=== PATIENT | male | born 1970 | race Caucasian/White ===

== ENCOUNTER 2017-02-25 23:45 | Emergency (ER) | payer OTHER ==
[~2017-02-25] VITALS: Ht 177.8 cm; Wt 75.0 kg
[~2017-02-25 23:45] MED LIST: AUGM875T PO; CLIN1CAP6 PO; HYDR-3516 PO
[2017-02-25 23:49] VITALS: BP 115/67; PULSE 83; RESP 16; TEMP 97.9; O2SAT 97
[2017-02-26 00:02] LABS: MEAN CORPUSCULAR HGB CONC 36.4 % (32.0-36.0)
--- NOTE | 2017-02-26 00:28 | RADRPT ---
EXAM DATE/TIME: 02/26/2017 00:11 [facility] COMPARISON: CT BRAIN W/O CONTRAST, May 05, 2016, 11:21. INDICATIONS : Dizziness. RADIATION DOSE: 35.38 CTDIvol (mGy) MEDICAL HISTORY : Myocardial infarction. Aneurysm, abdominal. Gastroesophageal reflux disease.Hypertension SURGICAL HISTORY : hernia repair, vasectomy ENCOUNTER: Initial ACUITY: 1 day PAIN SCALE: 0/10 LOCATION: cranial TECHNIQUE: Multiple contiguous axial images were obtained of the head. Using automated exposure control and adj ustment of the mA and/or kV according to patient size, radiation dose was kept as low as reasonably a chievable to obtain optimal diagnostic quality images. FINDINGS: CEREBRUM: The ventricles are normal. No evidence of midline shift, mass lesion, hemorrhage or acute infarction . No extra-axial fluid collections are seen. POSTERIOR FOSSA: The cerebellum and brainstem demonstrate no abnormality. The 4th ventricle is midline. The cerebell opontine angle is unremarkable. EXTRACRANIAL: There is a stable 15 mm polyp versus mucous retention cyst in the right maxillary sinus. SKULL: The calvaria is intact. No evidence of skull fracture. CONCLUSION: 1. No acute intracranial abnormality is identified. 2. Stable 15 mm polyp versus mucous retention cyst in the right maxillary antrum. Rex Buchanan MD on February 26, 2017 at 0:24 Board Certified Radiologist. This report was verified electronically.
[2017-02-26 00:38] LABS: AUTOMATED NEUTROPHIL # 7.5 TH/MM3 (1.8-7.7); BASOPHIL # 0.1 TH/MM3 (0-0.2); BASOPHIL % 0.6 % (0.0-2.0); EOSINOPHIL # 0.1 TH/MM3 (0-0.4); EOSINOPHIL % 0.6 % (0.0-4.0); HEMATOCRIT 37.4 % (39.0-51.0); LYMPH % 12.2 % (9.0-44.0); LYMPHOCYTE # 1.1 TH/MM3 (1.0-4.8); MEAN CELL VOLUME 91.6 FL (80.0-100.0); MEAN CORPUSCULAR HEMOGLOBIN 33.3 PG (27.0-34.0); MONO % 5.7 % (0.0-8.0); NEUT % 80.9 % (16.0-70.0); PLATELET COUNT 171 TH/MM3 (150-450); RED BLOOD COUNT 4.08 MIL/MM3 (4.50-5.90); RED CELL DISTRIBUTION WIDTH 13.8 % (11.6-17.2); WHITE BLOOD COUNT 9.3 TH/MM3 (4.0-11.0)
[2017-02-26 00:41] LABS: HEMO FLAGS AUTO DIFF
[2017-02-26 01:02] LABS: CREATINE KINASE 204 U/L (39-308)
[2017-02-26 01:10] LABS: ANION GAP 9 MEQ/L (5-15); BICARBONATE 25.1 MEQ/L (21.0-32.0); BLOOD UREA NITROGEN 23 MG/DL (7-18); CHLORIDE 100 MEQ/L (98-107); GLOMERULAR FILTRATION RATE 113 ML/MIN (>89); POTASSIUM 3.8 MEQ/L (3.5-5.1); SODIUM (NA) 134 MEQ/L (136-145)
[2017-02-26 01:15] LABS: CKMB 2.1 NG/ML (0.5-3.6)
[2017-02-26 01:47] LABS: SCAN/DIFF AUTO DIFF CONFIRMED; TEARDROP RBCS 1+ (NORMAL)
--- NOTE | 2017-02-26 02:24 | PD ---
HPI Chief Complaint: Cardiac Complaint Time Seen by Provider: 23:49 Travel History International Travel<30 days: No Contact w/Intl Traveler<30days: No Traveled to known affect area: No History of Present Illness HPI 46yo M with IVDA complains of dizziness after speedball. Pt states he had blurred vision and then felt dizzy and after a while, felt better. Denies any fever, chest pain, sob, n/v, abdominal pain, focal weakness or numbness. PFSH Past Medical History AAA: Yes Autoimmune Disease: No Anxiety: Yes Depression: Yes Cancer: No Cardiovascular Problems: Yes (MT, HTN) High Cholesterol: Yes Cerebrovascular Accident: No Diminished Hearing: No Endocrine: No Gastrointestinal Disorders: Yes GERD: Yes Genitourinary: No Headaches: No Hiatal Hernia: Yes Hypertension: Yes Immune Disorder: No Implanted Vascular Access Dvce: No Musculoskeletal: No Neurologic: No Psychiatric: No Respiratory: No Migraines: No Myocardial Infarction: Yes (PER PT) Seizures: No Past Surgical History Abdominal Surgery: Yes (hernia repair) Cardiac Surgery: No Endocrine Surgery: No Eye Surgery: No Genitourinary Surgery: Yes (vasectomy) Gynecologic Surgery: No Neurologic Surgery: No Oral Surgery: No Thoracic Surgery: No Other Surgery: Yes (RIGHT UNDERARM LYMPH NODE REMOVED A CHILD) Social History Alcohol Use: Yes Tobacco Use: Yes (1/2 pack a day ) Substance Use: Yes (crystal meth(DENIES)) Allergies-Medications (Allergen,Severity, Reaction): Coded Allergies: *MDRO Multi-Drug Resistant Organism (Verified Adverse Reaction, Unknown, ) MRSA arm wound 09/2015 *MRSA PCR screen negative 01/13/2016* Reported Meds & Prescriptions Reported Meds & Active Scripts Active Meclizine (Meclizine HCl) 25 Mg Tab 25 Mg PO TID PRN Review of Systems Except as stated in HPI: all other systems reviewed are Neg Physical Exam Narrative GEN: 46yo M not in distress. HEAD: Normocephalic, atraumatic. EYES: Pupisl 4mm and reactive bilaterally. CV: S1, S2. Lungs: CTA B/L, equal breath sounds. Abd: soft, NT/ND. No rebound tenderness or guarding. EXT: No edema. Pt states he injected right hand where the current IV is now. No signs of infection in right hand. NEURO: No focal neurologic deficits. Data Data Last Documented VS Vital Signs Date Time Temp Pulse Resp B/P Pulse Ox O2 Delivery O2 Flow Rate FiO2 02/25/17 23:49 97.9 83 16 115/67 97 Orders Electrocardiogram (02/26/17 ) Complete Blood Count With Diff (02/26/17 00:01) Basic Metabolic Panel (Bmp) (02/26/17 00:01) Troponin I (02/26/17 00:01) Ckmb (Isoenzyme) Profile (02/26/17 00:01) Ct Brain W/O Iv Contrast(Rout) (02/26/17 ) CKMB (02/26/17 00:25) CKMB% (02/26/17 00:25) Sodium Chlorid 0.9% 500 Ml Inj (Ns 500 M (02/26/17 02:30) Labs Laboratory Tests Test 02/26/17 00:25 White Blood Count 9.3 TH/MM3 Red Blood Count 4.08 MIL/MM3 Hemoglobin 13.6 GM/DL Hematocrit 37.4 % Mean Corpuscular Volume 91.6 FL Mean Corpuscular Hemoglobin 33.3 PG Mean Corpuscular Hemoglobin 36.4 % Concent Red Cell Distribution Width 13.8 % Platelet Count 171 TH/MM3 Mean Platelet Volume 8.1 FL Neutrophils (%) (Auto) 80.9 % Lymphocytes (%) (Auto) 12.2 % Monocytes (%) (Auto) 5.7 % Eosinophils (%) (Auto) 0.6 % Basophils (%) (Auto) 0.6 % Neutrophils # (Auto) 7.5 TH/MM3 Lymphocytes # (Auto) 1.1 TH/MM3 Monocytes # (Auto) 0.5 TH/MM3 Eosinophils # (Auto) 0.1 TH/MM3 Basophils # (Auto) 0.1 TH/MM3 CBC Comment AUTO DIFF Differential Comment AUTO DIFF CONFIRMED Tear Drop Cells 1+ Sodium Level 134 MEQ/L Potassium Level 3.8 MEQ/L Chloride Level 100 MEQ/L Carbon Dioxide Level 25.1 MEQ/L Anion Gap 9 MEQ/L Blood Urea Nitrogen 23 MG/DL Creatinine 0.74 MG/DL Estimat Glomerular Filtration 113 ML/MIN Rate Random Glucose 117 MG/DL Calcium Level 8.4 MG/DL Total Creatine Kinase 204 U/L Creatine Kinase MB 2.1 NG/ML Troponin I LESS THAN 0.02 NG/ML MDM Medical Decision Making Medical Screen Exam Complete: Yes Emergency Medical Condition: Yes Interpretation(s) EKG: NSR 85bpm. LAD. No ST segment elevation or depression. Differential Diagnosis Drug induced effects vs. ACS vs. ICH Narrative Course 46yo M complained of dizziness and blurred vision after speedball today. Pt was not forthcoming about using drugs until I confronted him that the triage note stated it. Labs reviewed, no leukocytosis. Troponin negative. BUN mildly elevated at 23. Will give NS IVF. CT brain showed no acute intracranial abnormality. Stable 15mm polyp versus mucous retention cyst in right maxillary antrum. Diagnosis Primary Impression: Drug use Patient Instructions: General Instructions Departure Forms: Tests/Procedures Additional Instructions: Please follow up with your PMD in 3-7 days. Return to the ED if symptoms worsen. Med/Other Pt SpecificInfo: No Change to Meds Disposition: 01 DISCHARGE HOME Condition: Stable TenaKailynSamantha DO Feb 26, 2017 02:24
[2017-02-26] MEDS ORDERED: SODIUM CHLORID 0.9% 500 ML INJ 500 ML IV ONE (02:30)
[2017-02-26] MEDS ORDERED: MECL-62 PO (11:38)
--- NOTE | 2017-02-27 21:18 | EKG ---
Date Performed: 02/26/2017 Time Performed: 00:23:21 PTAGE: 46 years EKG: Sinus rhythm MARKED LEFT AXIS DEVIATION ABNORMAL ECG PREVIOUS TRACING : 05/05/2016 10.59 DOCTOR: Antonia Dia Interpretating Date/Time 02/27/2017 21:17:43
== END 2017-02-26 04:23 | disposition home or self-care (01) ==
LOC: NEPE 23:45
DX: F19.90 Other psychoactive substance use, unspecified, uncomplicated (principal); R94.31 Abnormal electrocardiogram [ECG] [EKG]
CPT/HCPCS: 70450; 80048; 82550; 82552; 84484; 85025; 93005; 96360; 99284; J7040

== ENCOUNTER 2017-02-26 06:37 | Emergency (ER) | payer OTHER ==
[~2017-02-26] VITALS: Ht 177.8 cm; Wt 65.0 kg
[2017-02-26 06:44] VITALS: BP 110/66; PULSE 65; RESP 15; TEMP 97.6; O2SAT 96
[2017-02-26 08:00] VITALS: BP 114/75; PULSE 68; RESP 19; O2SAT 97
[2017-02-26] MEDS ORDERED: SODIUM CHLORIDE 0.9% FLUSH 10 ML FLUSH IV FLUSH PRN (08:00)
[2017-02-26] MEDS ORDERED: SODIUM CHLOR 0.9% 1000 ML INJ 1,000 ML IV ONE (08:00)
[2017-02-26] MEDS ORDERED: MECLIZINE HCL 25 MG TAB PO ONE (08:00)
--- NOTE | 2017-02-26 08:06 | PD ---
HPI Chief Complaint: Dizziness Time Seen by Provider: 07:56 Travel History International Travel<30 days: No Contact w/Intl Traveler<30days: No Traveled to known affect area: No History of Present Illness HPI 46-year-old male here for evaluation of dizziness. The patient was here last night for the same, had negative workup including unremarkable CBC and BMP as well as CT head. According to the note from last night, the patient admitted to using a speedball prior to feeling dizziness. Today he is adamant that he has not done any drugs, stating that he has not done drugs in over 10 years. He denies alcohol abuse as well. Dizziness is worse with movements, better with lying still and keeping his eyes closed. No chest pain or dyspnea. No fevers or recent illness. PFSH Past Medical History AAA: Yes Autoimmune Disease: No Anxiety: Yes Depression: Yes Cancer: No Cardiovascular Problems: Yes (AAA) High Cholesterol: Yes Cerebrovascular Accident: No Diminished Hearing: No Endocrine: No Gastrointestinal Disorders: Yes GERD: Yes Genitourinary: No Headaches: No Hiatal Hernia: Yes Hypertension: Yes Immune Disorder: No Implanted Vascular Access Dvce: No Musculoskeletal: No Neurologic: No Psychiatric: No Respiratory: No Migraines: No Myocardial Infarction: Yes (PER PT) Seizures: No Tetanus Vaccination: < 5 Years Past Surgical History Abdominal Surgery: Yes (hernia repair) Cardiac Surgery: No Endocrine Surgery: No Eye Surgery: No Genitourinary Surgery: Yes (vasectomy) Gynecologic Surgery: No Neurologic Surgery: No Oral Surgery: No Thoracic Surgery: No Other Surgery: Yes (RIGHT UNDERARM LYMPH NODE REMOVED A CHILD) Social History Alcohol Use: No (QUIT 10 YEARS) Tobacco Use: Yes (5 CIG) Substance Use: Yes (crystal meth(DENIES)) Allergies-Medications (Allergen,Severity, Reaction): Coded Allergies: *MDRO Multi-Drug Resistant Organism (Verified Adverse Reaction, Unknown, ) MRSA arm wound 09/2015 *MRSA PCR screen negative 01/13/2016* Reported Meds & Prescriptions Reported Meds & Active Scripts Active No Active Prescriptions or Reported Medications Review of Systems Except as stated in HPI: all other systems reviewed are Neg Physical Exam Narrative GENERAL: Well-developed, well-nourished, keeps eyes closed, no acute distress. SKIN: Warm and dry. No rash. No pallor. HEAD: Atraumatic. Normocephalic. EYES: Pupils equal, round, pinpoint. No nystagmus. No scleral icterus. No injection or drainage. ENT: No nasal bleeding or discharge. Mucous membranes pink and moist. Bilateral cerumen impaction. NECK: Trachea midline. No JVD. No nuchal rigidity. CARDIOVASCULAR: Regular rate and rhythm. RESPIRATORY: No accessory muscle use. Clear to auscultation. Breath sounds equal bilaterally. GASTROINTESTINAL: Abdomen soft, non-tender, nondistended. MUSCULOSKELETAL: No obvious deformities. No clubbing. No cyanosis. No edema. NEUROLOGICAL: Awake and alert. No obvious cranial nerve deficits. Motor grossly within normal limits. Normal speech. No focal deficits. PSYCHIATRIC: Appropriate mood and affect; insight and judgment normal. Data Data Last Documented VS Vital Signs Date Time Temp Pulse Resp B/P Pulse Ox O2 Delivery O2 Flow Rate FiO2 02/26/17 10:46 97 Room Air 02/26/17 08:00 68 19 114/75 02/26/17 06:44 97.6 Orders Complete Blood Count With Diff (02/26/17 08:00) Comprehensive Metabolic Panel (02/26/17 08:00) Urinalysis - C+S If Indicated (02/26/17 08:00) Iv Access Insert/Monitor (02/26/17 08:00) Ecg Monitoring (02/26/17 08:00) Oximetry (02/26/17 08:00) Sodium Chloride 0.9% Flush (Ns Flush) (02/26/17 08:00) Electrocardiogram (02/26/17 08:00) Creatine Kinase (Cpk) (02/26/17 08:00) Meclizine (Antivert) (02/26/17 08:00) Sodium Chlor 0.9% 1000 Ml Inj (Ns 1000 M (02/26/17 08:00) Ear Irrigation (02/26/17 08:00) Drug Screen, Random Urine (02/26/17 08:00) Mri Brain W/O Contrast (02/26/17 10:02) Labs Laboratory Tests Test 02/26/17 02/26/17 08:10 08:45 White Blood Count 6.6 TH/MM3 Red Blood Count 4.34 MIL/MM3 Hemoglobin 14.0 GM/DL Hematocrit 40.0 % Mean Corpuscular Volume 92.3 FL Mean Corpuscular Hemoglobin 32.4 PG Mean Corpuscular Hemoglobin 35.1 % Concent Red Cell Distribution Width 14.1 % Platelet Count 180 TH/MM3 Mean Platelet Volume 8.0 FL Neutrophils (%) (Auto) 61.4 % Lymphocytes (%) (Auto) 26.9 % Monocytes (%) (Auto) 9.7 % Eosinophils (%) (Auto) 1.5 % Basophils (%) (Auto) 0.5 % Neutrophils # (Auto) 4.0 TH/MM3 Lymphocytes # (Auto) 1.8 TH/MM3 Monocytes # (Auto) 0.6 TH/MM3 Eosinophils # (Auto) 0.1 TH/MM3 Basophils # (Auto) 0.0 TH/MM3 CBC Comment DIFF FINAL Differential Comment Sodium Level 137 MEQ/L Potassium Level 4.1 MEQ/L Chloride Level 104 MEQ/L Carbon Dioxide Level 26.9 MEQ/L Anion Gap 6 MEQ/L Blood Urea Nitrogen 17 MG/DL Creatinine 0.68 MG/DL Estimat Glomerular Filtration 124 ML/MIN Rate Random Glucose 94 MG/DL Calcium Level 8.9 MG/DL Total Bilirubin 0.7 MG/DL Aspartate Amino Transf 18 U/L (AST/SGOT) Alanine Aminotransferase 16 U/L (ALT/SGPT) Alkaline Phosphatase 95 U/L Total Creatine Kinase 161 U/L Total Protein 7.6 GM/DL Albumin 3.7 GM/DL Urine Color YELLOW Urine Turbidity CLEAR Urine pH 6.0 Urine Specific [place] 1.012 Urine Protein NEG mg/dL Urine Glucose (UA) NEG mg/dL Urine Ketones NEG mg/dL Urine Occult Blood NEG Urine Nitrite NEG Urine Bilirubin NEG Urine Urobilinogen LESS THAN 2.0 MG/DL Urine Leukocyte Esterase NEG Urine RBC 2 /hpf Urine WBC 1 /hpf Microscopic Urinalysis Comment CULT NOT INDICATED Urine Opiates Screen NEG Urine Barbiturates Screen NEG Urine Amphetamines Screen POS Urine Benzodiazepines Screen NEG Urine Cocaine Screen NEG Urine Cannabinoids Screen NEG MDM Medical Decision Making Medical Screen Exam Complete: Yes Emergency Medical Condition: Yes Interpretation(s) EKG: Sinus, rate 63, left axis deviation, slightly prolonged QT interval, no acute ischemic abnormality. Differential Diagnosis Vertigo, ICH, alcohol intoxication, drug intoxication, electrolyte abnormality, cerumen impaction Narrative Course Vital signs reviewed and are within normal limits. CBC is unremarkable. CMP is unremarkable. UA is within normal limits. Urine drug screen is positive for amphetamines, negative for all other drugs tested. MRI brain: CEREBRUM: The ventricles are normal for age. No evidence of midline shift, mass lesion, hemorrhage or acute infarction. No extraaxial fluid collections are seen. The pituitary gland and suprasellar cistern are normal in configuration. WHITE MATTER: No significant signal abnormalities are seen in the white matter. POSTERIOR FOSSA: The cerebellum and brainstem are intact. The 4th ventricle is midline. The cerebellopontine angle is unremarkable. The cerebellar tonsils are normal in position. DIFFUSION IMAGING: No focal areas of restricted diffusion are seen. No evidence of acute infarction. EXTRACRANIAL: Minimal left maxillary sinus disease is noted. The this is probably retention cyst in unusual location. Followup may be of benefit. CONCLUSION: Negative MRI of the brain for an acute intracranial process. Please see above discussion. Patient had cerumen disimpaction bilaterally by my air conditioning service technician who reports that there was significant amount of wax removed. On reassessment the patient is sleeping comfortably. He was made aware of all findings. He is requesting something to eat and drink. At this point I believe he is stable for discharge home with outpatient follow-up. He was informed on when to return to the emergency department. He verbalizes understanding and agreement with plan. Diagnosis Primary Impression: Dizziness Additional Impressions: Cerumen impaction Qualified Code: H61.23 - Bilateral impacted cerumen Amphetamine user Referrals: Facundo Basurto MD 3 days Neurologist Primary Care Physician 3 days Additional Instructions: Follow-up with a primary care physician this week. Follow-up with neurologist Dr. Ware or a neurologist of your choice this week. Scripts Meclizine 25 Mg Tab25 Mg PO TID PRN (VERTIGO) #20 TAB Ref 0 Prov:Ruddy Payne MD 02/26/17 Disposition: 01 DISCHARGE HOME Condition: Stable Ruddy Payne MD Feb 26, 2017 08:06
[2017-02-26 08:20] LABS: BASOPHIL % 0.5 % (0.0-2.0); EOSINOPHIL # 0.1 TH/MM3 (0-0.4); EOSINOPHIL % 1.5 % (0.0-4.0); HEMO FLAGS DIFF FINAL; LYMPH % 26.9 % (9.0-44.0); LYMPHOCYTE # 1.8 TH/MM3 (1.0-4.8); MEAN CELL VOLUME 92.3 FL (80.0-100.0); MEAN CORPUSCULAR HEMOGLOBIN 32.4 PG (27.0-34.0); MEAN CORPUSCULAR HGB CONC 35.1 % (32.0-36.0); MONO % 9.7 % (0.0-8.0); NEUT % 61.4 % (16.0-70.0); PLATELET COUNT 180 TH/MM3 (150-450); RED BLOOD COUNT 4.34 MIL/MM3 (4.50-5.90); RED CELL DISTRIBUTION WIDTH 14.1 % (11.6-17.2); WHITE BLOOD COUNT 6.6 TH/MM3 (4.0-11.0)
[2017-02-26 08:39] LABS: ALT (GPT) 16 U/L (12-78); ANION GAP 6 MEQ/L (5-15); AST (GOT) 18 U/L (15-37); BICARBONATE 26.9 MEQ/L (21.0-32.0); BLOOD UREA NITROGEN 17 MG/DL (7-18); CHLORIDE 104 MEQ/L (98-107); GLOMERULAR FILTRATION RATE 124 ML/MIN (>89); POTASSIUM 4.1 MEQ/L (3.5-5.1); SODIUM (NA) 137 MEQ/L (136-145)
[2017-02-26 08:42] LABS: ALKALINE PHOSPHATASE 95 U/L (45-117); CREATINE KINASE 161 U/L (39-308); TOTAL BILIRUBIN ADULT 0.7 MG/DL (0.2-1.0)
[2017-02-26 09:24] LABS: BLOOD, URINE NEG (NEG); GLUCOSE,URINE NEG (NEG); KETONE, URINE NEG (NEG); NITRITE,URINE NEG (NEG); URINE COLOR YELLOW (YELLW/STRAW)
[2017-02-26 09:25] LABS: COMMENT (UR) CULT NOT INDICATED; CULTURE IF INDICATED CULT NOT INDICATED
[2017-02-26 10:46] VITALS: O2SAT 97
[2017-02-26 10:56] LABS: AMPHETAMINE, URINE POS (NEG); BARBITURATES, URINE NEG (NEG); COCAINE, URINE NEG (NEG)
[2017-02-26 11:00] VITALS: BP 97/52; PULSE 68; RESP 18; O2SAT 100
--- NOTE | 2017-02-26 11:11 | RADRPT ---
EXAM DATE/TIME: 02/26/2017 10:47 [facility] COMPARISON: No previous studies available for comparison. INDICATIONS : Dizziness. MEDICAL HISTORY : Hypertension. SURGICAL HISTORY : Inguinal hernia repair. ENCOUNTER: Initial ACUITY: 1 day PAIN SCORE: 0/10 LOCATION: cranial TECHNIQUE: Multiplanar, multisequence MRI of the brain was performed without contrast. FINDINGS: CEREBRUM: The ventricles are normal for age. No evidence of midline shift, mass lesion, hemorrhage or acute in farction. No extraaxial fluid collections are seen. The pituitary gland and suprasellar cistern are normal in configuration. WHITE MATTER: No significant signal abnormalities are seen in the white matter. POSTERIOR FOSSA: The cerebellum and brainstem are intact. The 4th ventricle is midline. The cerebellopontine angle is unremarkable. The cerebellar tonsils are normal in position. DIFFUSION IMAGING: No focal areas of restricted diffusion are seen. No evidence of acute infarction. EXTRACRANIAL: Minimal left maxillary sinus disease is noted. The this is probably retention cyst in unusual locati on. Followup may be of benefit. CONCLUSION: Negative MRI of the brain for an acute intracranial process. Please see above nj john. Eric Salvador MD FACR on February 26, 2017 at 11:07 Board Certified Radiologist. This report was verified electronically.
[2017-02-26] MEDS ORDERED: MECL-62 PO (11:38)
[2017-02-26 12:30] VITALS: BP 107/67
--- NOTE | 2017-02-27 00:10 | EKG ---
Date Performed: 02/26/2017 Time Performed: 09:11:04 PTAGE: 46 years EKG: Sinus rhythm MARKED LEFT AXIS DEVIATION PROLONGED QT INTERVAL ABNORMAL ECG PREVIOUS TRACING : 02/26/2017 00.23 DOCTOR: Antonia Dia Interpretating Date/Time 02/27/2017 00:08:57
== END 2017-02-26 12:47 | disposition home or self-care (01) ==
LOC: NEPC 06:37
DX: R42 Dizziness and giddiness (principal); H61.23 Impacted cerumen, bilateral; F15.90 Other stimulant use, unspecified, uncomplicated; R94.31 Abnormal electrocardiogram [ECG] [EKG]; E78.00 Pure hypercholesterolemia, unspecified; I10 Essential (primary) hypertension; I25.2 Old myocardial infarction; Z72.0 Tobacco use; Z87.19 Personal history of other diseases of the digestive system; Z86.79 Personal history of other diseases of the circulatory system; Z86.59 Personal history of other mental and behavioral disorders
CPT/HCPCS: 70551; 80053; 80307; 81001; 82550; 85025; 93005; 96360; 96361; 99284; J7030

== ENCOUNTER 2018-05-07 00:17 | Observation (INO) | payer SELFPAY ==
[2018-05-07] VITALS (8 sets, daily range): BP systolic 96–162; BP diastolic 61–83; PULSE 57–93; RESP 16–20; TEMP 96.4–97.9; O2SAT 96–98
[~2018-05-07] VITALS: Ht 177.8 cm; Wt 75.0 kg
[~2018-05-07 00:17] MED LIST changes: -AUGM875T PO; -CLIN1CAP6 PO; -HYDR-3516 PO; +MECL-62 PO
[2018-05-07] MEDS ORDERED: SODIUM CHLORIDE 0.9% FLUSH 10 ML FLUSH IVF PRN (00:45)
--- NOTE | 2018-05-07 01:23 | RADRPT ---
EXAM DATE: 05/07/2018 1:16 AM EDT AGE/SEX: 47 years / Male INDICATIONS: Hypertensive episode causing chest pain and headache. CLINICAL DATA: This is the patient's initial encounter. Patient reports that signs and symptoms have been present for 1 day and indicates a pain score of 6/10. MEDICAL/SURGICAL HISTORY: Hypertension. Chronic obstructive pulmonary disease. [place] None. COMPARISON: [facility] – [place], CHEST SINGLE AP, 05/05/2016. . FINDINGS: A single AP view of the chest demonstrates the lungs to be symmetrically aerated without evidence of mass, infiltrate or effusion. The cardiomediastinal contours are unremarkable. Osseous structures a re intact. Healed fracture of the left clavicle CONCLUSION: Negative single view of the chest. Healed left clavicle fracture Electronically signed by: Earle Harris MD 05/07/2018 1:22 AM EDT
[2018-05-07] MEDS ORDERED: KETOROLAC TROMETHAMINE 30 MG/ML (IVP) VIAL IV PUSH ONE ×2 (01:30→03:30)
[2018-05-07 01:38] LABS: AUTOMATED NEUTROPHIL # 7.3 TH/MM3 (1.8-7.7); BASOPHIL # 0.1 TH/MM3 (0-0.2); BASOPHIL % 0.5 % (0.0-2.0); EOSINOPHIL # 0.1 TH/MM3 (0-0.4); EOSINOPHIL % 0.6 % (0.0-4.0); HEMATOCRIT 42.8 % (39.0-51.0); HEMOGLOBIN 15.3 GM/DL (13.0-17.0); LYMPH % 22.1 % (9.0-44.0); LYMPHOCYTE # 2.3 TH/MM3 (1.0-4.8); MEAN CELL VOLUME 97.1 FL (80.0-100.0); MEAN CORPUSCULAR HEMOGLOBIN 34.7 PG (27.0-34.0); MEAN CORPUSCULAR HGB CONC 35.7 % (32.0-36.0); MEAN PLATELET VOLUME 8.7 FL (7.0-11.0); MONO % 8.3 % (0.0-8.0); MONOCYTE # 0.9 TH/MM3 (0-0.9); NEUT % 68.5 % (16.0-70.0); PLATELET COUNT 206 TH/MM3 (150-450); RED BLOOD COUNT 4.41 MIL/MM3 (4.50-5.90); RED CELL DISTRIBUTION WIDTH 13.1 % (11.6-17.2); WHITE BLOOD COUNT 10.6 TH/MM3 (4.0-11.0)
--- NOTE | 2018-05-07 01:43 | PD ---
HPI Chief Complaint: Chest Pain Time Seen by Provider: 01:01 Travel History International Travel<30 days: No Contact w/Intl Traveler<30days: No Traveled to known affect area: No History of Present Illness HPI Patient is a 47-year-old male who presents to the emergency room with multiple complaints. Patient reports that for the past 4 days, he has had a frontal headache. Patient reports that he has had photophobia with nausea with his symptoms. Patient reports that he was concerned that he may be having a stroke as he has had history of carotid artery plaques in the past, reports that he was put on Lipitor but did not take it as he was "feeling better". Patient reports that today, he began to have chest pain. Patient reports that began to have pressure to his chest, reports that the pressure was a left-sided of his chest, reports that he felt nauseous and diaphoretic with his symptoms. Patient reports that nothing makes his symptoms better or worse. Patient reports that he was diagnosed with a mini heart attack a few years ago in [place], reports concerns that he may also be having a heart attack. Patient reports that he is supposed be taking a medication for hypertension along with his Lipitor, reports that he has not been taking his medications as he could not afford it. Patient denies any cardiac stents or bypass surgery, patient currently chest pain-free at this time. Patient is a smoker and smokes 5 cigarettes/day. PFSH Past Medical History AAA: Yes Autoimmune Disease: No Anxiety: Yes Depression: Yes Cancer: No Cardiovascular Problems: Yes (AAA) High Cholesterol: Yes Cerebrovascular Accident: No Diminished Hearing: No Endocrine: No Gastrointestinal Disorders: Yes GERD: Yes Genitourinary: No Headaches: No Hiatal Hernia: Yes Hypertension: Yes Immune Disorder: No Implanted Vascular Access Dvce: No Musculoskeletal: No Neurologic: No Psychiatric: No Respiratory: No Migraines: No Myocardial Infarction: Yes (PER PT) Seizures: No Influenza Vaccination: No Past Surgical History Abdominal Surgery: Yes (hernia repair) Cardiac Surgery: No Endocrine Surgery: No Eye Surgery: No Genitourinary Surgery: Yes (vasectomy) Gynecologic Surgery: No Neurologic Surgery: No Oral Surgery: No Thoracic Surgery: No Other Surgery: Yes (RIGHT UNDERARM LYMPH NODE REMOVED A CHILD) Social History Alcohol Use: No (QUIT 10 YEARS) Tobacco Use: Yes (5 CIG) Substance Use: Yes (crystal meth(DENIES)) Allergies-Medications (Allergen,Severity, Reaction): Coded Allergies: *MDRO Multi-Drug Resistant Organism (Verified Adverse Reaction, Unknown, ) MRSA arm wound 09/2015 *MRSA PCR screen negative 01/13/2016* Reported Meds & Prescriptions Reported Meds & Active Scripts Active No Active Prescriptions or Reported Medications Review of Systems General / Constitutional: No: Fever Eyes: No: Visual changes HENT: Positive: Headaches Cardiovascular: Positive: Chest Pain or Discomfort, No: Palpitations, Irregular Rhythm, Tachycardia Respiratory: No: Shortness of Breath Gastrointestinal: No: Abdominal Pain Genitourinary: No: Dysuria Musculoskeletal: No: Pain Skin: No Rash Neurologic: Positive: Headache, No: Weakness Psychiatric: No: Depression Endocrine: No: Polydipsia Hematologic/Lymphatic: No: Easy Bruising Physical Exam Narrative GENERAL: Moderate distress SKIN: Focused skin assessment warm/dry. HEAD: Atraumatic. Normocephalic. EYES: Pupils equal and round. No scleral icterus. No injection or drainage. ENT: No nasal bleeding or discharge. Mucous membranes pink and moist. NECK: Trachea midline. No JVD. CARDIOVASCULAR: Regular rate and rhythm. No murmur appreciated. RESPIRATORY: No accessory muscle use. Clear to auscultation. Breath sounds equal bilaterally. GASTROINTESTINAL: Abdomen soft, non-tender, nondistended. Hepatic and splenic margins not palpable. MUSCULOSKELETAL: No obvious deformities. No clubbing. No cyanosis. No edema. NEUROLOGICAL: Awake and alert. No obvious cranial nerve deficits. Motor grossly within normal limits. Normal speech. CN 2- 12 grossly intact with no neurological deficits PSYCHIATRIC: Appropriate mood and affect; insight and judgment normal. Data Data Last Documented VS Vital Signs Date Time Temp Pulse Resp B/P (MAP) Pulse Ox O2 Delivery O2 Flow Rate FiO2 05/07/18 02:29 85 18 121/75 (90) 97 Room Air 05/07/18 00:19 97.9 Orders Orders Electrocardiogram (05/07/18 ) Ckmb (Isoenzyme) Profile (05/07/18 00:38) Complete Blood Count With Diff (05/07/18 00:38) Comprehensive Metabolic Panel (05/07/18 00:38) Magnesium (Mg) (05/07/18 00:38) Prothrombin Time / Inr (Pt) (05/07/18 00:38) Act Partial Throm Time (Ptt) (05/07/18 00:38) Troponin I (05/07/18 00:38) Lipase (05/07/18 00:38) Chest, Single Ap (05/07/18 00:38) Ecg Monitoring (05/07/18 00:38) Iv Access Insert/Monitor (05/07/18 00:38) Oximetry (05/07/18 00:38) Sodium Chloride 0.9% Flush (Ns Flush) (05/07/18 00:45) Ct Brain W/O Iv Contrast(Rout) (05/07/18 ) Ketorolac Inj (Toradol Inj) (05/07/18 01:30) Aspirin Chew (Aspirin Chew) (05/07/18 01:45) CKMB (05/07/18 00:58) CKMB% (05/07/18 00:58) Labs Laboratory Tests Test 05/07/18 00:58 White Blood Count 10.6 TH/MM3 Red Blood Count 4.41 MIL/MM3 Hemoglobin 15.3 GM/DL Hematocrit 42.8 % Mean Corpuscular Volume 97.1 FL Mean Corpuscular Hemoglobin 34.7 PG Mean Corpuscular Hemoglobin Concent 35.7 % Red Cell Distribution Width 13.1 % Platelet Count 206 TH/MM3 Mean Platelet Volume 8.7 FL Neutrophils (%) (Auto) 68.5 % Lymphocytes (%) (Auto) 22.1 % Monocytes (%) (Auto) 8.3 % Eosinophils (%) (Auto) 0.6 % Basophils (%) (Auto) 0.5 % Neutrophils # (Auto) 7.3 TH/MM3 Lymphocytes # (Auto) 2.3 TH/MM3 Monocytes # (Auto) 0.9 TH/MM3 Eosinophils # (Auto) 0.1 TH/MM3 Basophils # (Auto) 0.1 TH/MM3 CBC Comment DIFF FINAL Differential Comment Prothrombin Time 10.0 SEC Prothromb Time International Ratio 1.0 RATIO Activated Partial Thromboplast Time 25.4 SEC Blood Urea Nitrogen 10 MG/DL Creatinine 0.82 MG/DL Random Glucose 85 MG/DL Total Protein 7.8 GM/DL Albumin 4.1 GM/DL Calcium Level 8.7 MG/DL Magnesium Level 1.9 MG/DL Alkaline Phosphatase 88 U/L Aspartate Amino Transf (AST/SGOT) 17 U/L Alanine Aminotransferase (ALT/SGPT) 16 U/L Total Bilirubin 0.2 MG/DL Sodium Level 140 MEQ/L Potassium Level 3.5 MEQ/L Chloride Level 105 MEQ/L Carbon Dioxide Level 26.8 MEQ/L Anion Gap 8 MEQ/L Estimat Glomerular Filtration Rate 100 ML/MIN Total Creatine Kinase 119 U/L Creatine Kinase MB 1.0 NG/ML Troponin I LESS THAN 0.02 NG/ML Lipase 113 U/L MDM Medical Decision Making Medical Screen Exam Complete: Yes Emergency Medical Condition: Yes Medical Record Reviewed: Yes Interpretation(s) EKG at 2333: Normal sinus rhythm at 84 bpm, QT/QTc 365/406, incomplete right bundle branch block Vital Signs Date Time Temp Pulse Resp B/P (MAP) Pulse Ox O2 Delivery O2 Flow Rate FiO2 05/07/18 01:31 82 18 153/78 (103) 97 Room Air 05/07/18 00:45 20 96 Room Air 05/07/18 00:34 93 18 145/83 (103) 97 Room Air 05/07/18 00:19 97.9 84 16 162/82 (108) 98 Differential Diagnosis ACS, arrhythmia, pneumothorax, PE, cephalgia, electrolyte abnormality Narrative Course During the course of the patients emergency department visit, the patients history, examination, and differential diagnosis were reviewed with the patient. The patient was placed on a hall monitor with oximetry and frequent blood pressure monitoring. The patient had an IV access obtained and blood work sent for analysis. The patient was initially provided IV toradol for pain - patient currently cp free at this time. The patients laboratory studies were reviewed and remarkable for Laboratory Tests Test 05/07/18 00:58 White Blood Count 10.6 TH/MM3 (4.0-11.0) Red Blood Count 4.41 MIL/MM3 (4.50-5.90) Hemoglobin 15.3 GM/DL (13.0-17.0) Hematocrit 42.8 % (39.0-51.0) Mean Corpuscular Volume 97.1 FL (80.0-100.0) Mean Corpuscular Hemoglobin 34.7 PG (27.0-34.0) Mean Corpuscular Hemoglobin Concent 35.7 % (32.0-36.0) Red Cell Distribution Width 13.1 % (11.6-17.2) Platelet Count 206 TH/MM3 (150-450) Mean Platelet Volume 8.7 FL (7.0-11.0) Neutrophils (%) (Auto) 68.5 % (16.0-70.0) Lymphocytes (%) (Auto) 22.1 % (9.0-44.0) Monocytes (%) (Auto) 8.3 % (0.0-8.0) Eosinophils (%) (Auto) 0.6 % (0.0-4.0) Basophils (%) (Auto) 0.5 % (0.0-2.0) Neutrophils # (Auto) 7.3 TH/MM3 (1.8-7.7) Lymphocytes # (Auto) 2.3 TH/MM3 (1.0-4.8) Monocytes # (Auto) 0.9 TH/MM3 (0-0.9) Eosinophils # (Auto) 0.1 TH/MM3 (0-0.4) Basophils # (Auto) 0.1 TH/MM3 (0-0.2) CBC Comment DIFF FINAL Differential Comment Prothrombin Time 10.0 SEC (9.8-11.6) Prothromb Time International Ratio 1.0 RATIO Activated Partial Thromboplast Time 25.4 SEC (24.3-30.1) Blood Urea Nitrogen 10 MG/DL (7-18) Creatinine 0.82 MG/DL (0.60-1.30) Random Glucose 85 MG/DL (74-106) Total Protein 7.8 GM/DL (6.4-8.2) Albumin 4.1 GM/DL (3.4-5.0) Calcium Level 8.7 MG/DL (8.5-10.1) Magnesium Level 1.9 MG/DL (1.5-2.5) Alkaline Phosphatase 88 U/L (45-117) Aspartate Amino Transf (AST/SGOT) 17 U/L (15-37) Alanine Aminotransferase (ALT/SGPT) 16 U/L (12-78) Total Bilirubin 0.2 MG/DL (0.2-1.0) Sodium Level 140 MEQ/L (136-145) Potassium Level 3.5 MEQ/L (3.5-5.1) Chloride Level 105 MEQ/L (98-107) Carbon Dioxide Level 26.8 MEQ/L (21.0-32.0) Anion Gap 8 MEQ/L (5-15) Estimat Glomerular Filtration Rate 100 ML/MIN (>89) Total Creatine Kinase 119 U/L (39-308) Creatine Kinase MB 1.0 NG/ML (0.5-3.6) Troponin I LESS THAN 0.02 NG/ML Lipase 113 U/L (73-393) Radiology studies were reviewed and remarkable for Last Impressions Chest X-Ray 05/07/18 0038 Signed Impressions: CONCLUSION: Negative single view of the chest. Healed left clavicle fracture Head CT 05/07/18 0000 Signed Impressions: CONCLUSION: 1. Negative CT Head non contrast. Patient reevaluated, patient reports that he is feeling much better at this time. Lab work including cardiac enzymes were reviewed and were benign. Patient was given aspirin for his chest pain. Patient will be observed in the chest pain unit for chest pain rule out. Diagnosis Primary Impression: Chest pain Qualified Codes: R07.9 - Chest pain, unspecified Admitting Information Admitting Physician Requests: Observation Scripts No Active Prescriptions or Reported Meds Shelli Heller DO May 07, 2018 01:43
[2018-05-07] MEDS ORDERED: ASPIRIN 81 MG CHEW TAB CHEW ONE (01:45)
[2018-05-07 01:54] LABS: ALBUMIN 4.1 GM/DL (3.4-5.0); ALT (GPT) 16 U/L (12-78); AST (GOT) 17 U/L (15-37); BICARBONATE 26.8 MEQ/L (21.0-32.0); BLOOD UREA NITROGEN 10 MG/DL (7-18); CALCIUM 8.7 MG/DL (8.5-10.1); CHLORIDE 105 MEQ/L (98-107); CREATININE 0.82 MG/DL (0.60-1.30); GLOMERULAR FILTRATION RATE 100 ML/MIN (>89); GLUCOSE,RANDOM 85 MG/DL (74-106); MAGNESIUM 1.9 MG/DL (1.5-2.5); SODIUM (NA) 140 MEQ/L (136-145)
[2018-05-07 01:58] LABS: ALKALINE PHOSPHATASE 88 U/L (45-117); TOTAL BILIRUBIN ADULT 0.2 MG/DL (0.2-1.0); TOTAL PROTEIN 7.8 GM/DL (6.4-8.2); TROPONIN I LESS THAN 0.02 NG/ML (0.02-0.05)
--- NOTE | 2018-05-07 03:04 | RADRPT ---
EXAM DATE: 05/07/2018 2:09 AM EDT AGE/SEX: 47 years / Male INDICATIONS: Headaches and dizziness. CLINICAL DATA: This is the patient's initial encounter. Patient reports that signs and symptoms have been present for 1 day and indicates a pain score of 8/10. MEDICAL/SURGICAL HISTORY: Cardiovascular disease. Hypertension. Gastroesophageal reflux disease. . RADIATION DOSE: 36.53 CTDI (mGy) COMPARISON: [facility] [place], CT BRAIN W/O CONTRAST, 02/26/2017. . TECHNIQUE: CT of the head without contrast. Using automated exposure control and adjustment of the mA and/or kV according to patient size, radiation dose was kept as low as reasonably achievable to ob tain optimal diagnostic quality images. FINDINGS: Cerebrum: The ventricles are normal for age. No evidence of midline shift, mass lesion, hemorrhage or acute infarction. No extraaxial fluid collections are seen. Posterior Fossa: The cerebellum and brainstem are intact. The 4th ventricle is midline. The cerebe llopontine angle is unremarkable. Extracranial: The visualized portion of the orbits is intact. Skull: The calvaria is intact. No evidence of skull fracture. CONCLUSION: 1. Negative CT Head non contrast. Electronically signed by: Earle Harris MD 05/07/2018 3:02 AM EDT
[2018-05-07] MEDS ORDERED: SODIUM CHLORIDE 0.9% FLUSH 10 ML FLUSH IV FLUSH PRN (03:45)
[2018-05-07 04:57] LABS: TROPONIN I LESS THAN 0.02 NG/ML (0.02-0.05)
[2018-05-07 06:50] LABS: TROPONIN I LESS THAN 0.02 NG/ML (0.02-0.05)
--- NOTE | 2018-05-07 08:13 | HHI.HP ---
HPI Primary Care Physician No Primary Care Physician Chief Complaint Chest pain History of Present Illness This is a 47-year-old male the presents to ED via private vehicle with a complaint of headache and chest discomfort. States his headache is been on and off for 3 days. States that his forehead. It is a achy pain. Denies visual changes. Denies numbness and weakness in extremities. Denies head injury. Denies seizure. States that around 6:00 yesterday afternoon while lying at home that he developed a left-sided dull discomfort in his chest is rated as a 7 out of 10. Maybe a little short of breath. Lasted couple hours. No nausea or diaphoresis. States he has had chest discomforts in the past. He states that he had a workup in [place] 9-10 months ago that included a stress test that was then followed up by a cardiac catheterization that he states he was told had no blockages. Was told that he should be on a cholesterol medicine but has not taken it. States he has no money to pay for it. Also history of hepatitis B states he followed up with gastroenterology and that has resolved. Also states he has used drugs in almost 2 years. Currently denies discomforts. Review of Systems General: Patient denies fevers, chills, and recent travel. HEENT: Patient denies headache, sore throat, difficulty swallowing. Cardiovascular: Has the chest discomfort as mentioned above. Denies sensation of heart beating rapidly or irregularly. No syncope. Denies diaphoresis. Respiratory: Mild shortness of breath initially. Denies inspirational chest discomfort. Denies coughing wheezing or hemoptysis. GI: Patient denies nausea, vomiting, diarrhea, abdominal pain, bloody stools. Musculoskeletal: Patient denies joint pain or edema. Denies calf pain or edema. Neurovascular: Patient denies numbness, tingling, weakness in extremities. Denies headache. Endocrine: Denies polyuria and polydipsia. Hematologic: Denies easy bruising. Skin: Denies rash or itching. Past Family Social History Allergies: Coded Allergies: *MDRO Multi-Drug Resistant Organism (Verified Adverse Reaction, Unknown, ) MRSA arm wound 09/2015 *MRSA PCR screen negative 01/13/2016* Past Medical History States he was told he had a myocardial infarction couple years ago while in [place] but then states he had a normal heart catheterization 9 or 10 months ago in [place]. Hypertension but states that resolved after change his lifestyle. Hyperlipidemia noncompliant with medication. Upon reviewing records he had mentioned abdominal aortic aneurysm but he cannot recall this. History of hepatitis B but states that resolved, states he followed up with gastroenterology. Tobacco abuse. Denies diabetes. Denies known CAD. Past Surgical History Cardiac catheterization 9-10 months ago without intervention. States he was told there were no blockages. Hernia repair. Vasectomy. Lymph node removed under right axilla as a child. Reported Medications Reported Meds & Active Scripts Active No Active Prescriptions or Reported Medications Active Ordered Medications Current Medications Medications (Trade) Dose Ordered Sig/Nadine Route Start Time Stop Time Status Last Admin (NS Flush) 2 ml UNSCH PRN IVF 05/07/18 00:45 (NS Flush) 2 ml UNSCH PRN IV FLUSH 05/07/18 03:45 (NS Flush) 2 ml BID IV FLUSH 05/07/18 09:00 Family History States his father had an NM in his late 50s but lived to be . Social History Smokes 5 cigarettes a day for the last 3 years but prior to that smoked about 1 pack a series daily for 30 years. She has had no alcohol for couple years. States he had no illicit drugs for almost 2 years. Physical Exam Vital Signs Vital Signs Date Time Temp Pulse Resp B/P (MAP) Pulse Ox O2 Delivery O2 Flow Rate FiO2 05/07/18 07:01 57 05/07/18 05:09 18 05/07/18 04:42 97.8 70 16 100/61 (74) 96 05/07/18 04:16 05/07/18 02:29 85 18 121/75 (90) 97 Room Air 05/07/18 02:29 18 05/07/18 01:31 82 18 153/78 (103) 97 Room Air 05/07/18 00:45 20 96 Room Air 05/07/18 00:34 93 18 145/83 (103) 97 Room Air 05/07/18 00:19 97.9 84 16 162/82 (108) 98 Physical Exam GENERAL: This is a well-nourished, well-developed patient, in no apparent distress. Patient speaks in clear complete sentences. Patient is pleasant. HEENT: Head is atraumatic and normocephalic. Neck is supple without lymphadenopathy and trachea is midline. No JVD or carotid bruits. CARDIOVASCULAR: Regular rate and rhythm without murmurs, gallops, or rubs. RESPIRATORY: Clear to auscultation. Breath sounds equal bilaterally. No wheezes , rales, or rhonchi. Chest wall is nontender. No use of accessory muscles. GASTROINTESTINAL: Abdomen is nontender, nondistended. Abdomen soft. No obvious pulsatile mass or bruit. No CVA tenderness. Strong femoral pulses bilaterally. Normal bowel sounds in all quadrants. MUSCULOSKELETAL: Patient is moving upper and lower extremities freely. No calf tenderness or edema, no Homans sign. Strong pulses in upper and lower extremities. NEUROLOGICAL: Patient is alert and oriented. Cranial nerves 2-12 are grossly intact. No focal deficits and speech is clear. SKIN: No rash and turgor is normal. Laboratory Laboratory Tests Test 05/07/18 00:58 05/07/18 04:09 05/07/18 06:05 White Blood Count 10.6 Red Blood Count 4.41 Hemoglobin 15.3 Hematocrit 42.8 Mean Corpuscular Volume 97.1 Mean Corpuscular Hemoglobin 34.7 Mean Corpuscular Hemoglobin Concent 35.7 Red Cell Distribution Width 13.1 Platelet Count 206 Mean Platelet Volume 8.7 Neutrophils (%) (Auto) 68.5 Lymphocytes (%) (Auto) 22.1 Monocytes (%) (Auto) 8.3 Eosinophils (%) (Auto) 0.6 Basophils (%) (Auto) 0.5 Neutrophils # (Auto) 7.3 Lymphocytes # (Auto) 2.3 Monocytes # (Auto) 0.9 Eosinophils # (Auto) 0.1 Basophils # (Auto) 0.1 CBC Comment DIFF FINAL Differential Comment Prothrombin Time 10.0 Prothromb Time International Ratio 1.0 Activated Partial Thromboplast Time 25.4 Blood Urea Nitrogen 10 Creatinine 0.82 Random Glucose 85 Total Protein 7.8 Albumin 4.1 Calcium Level 8.7 Magnesium Level 1.9 Alkaline Phosphatase 88 Aspartate Amino Transf (AST/SGOT) 17 Alanine Aminotransferase (ALT/SGPT) 16 Total Bilirubin 0.2 Sodium Level 140 Potassium Level 3.5 Chloride Level 105 Carbon Dioxide Level 26.8 Anion Gap 8 Estimat Glomerular Filtration Rate 100 Total Creatine Kinase 119 107 103 Creatine Kinase MB 1.0 0.9 Troponin I LESS THAN 0.02 LESS THAN 0.02 LESS THAN 0.02 Lipase 113 Result Diagram: 05/07/18 0058 05/07/18 0058 Imaging Last 48 hours Impressions Chest X-Ray 05/07/18 0038 Signed Impressions: CONCLUSION: Negative single view of the chest. Healed left clavicle fracture Head CT 05/07/18 0000 Signed Impressions: CONCLUSION: 1. Negative CT Head non contrast. Course EKGs are sinus rhythm without significant ST segment depressions or elevations. Caprini VTE Risk Assessment Caprini VTE Risk Assessment: No/Low Risk (score <= 1) Caprini Risk Assessment Model Point Value = 1 Point Value = 2 Point Value = 3 Point Value = 5 Age 41-60 Minor surgery BMI > 25 kg/m2 Swollen legs Varicose veins or History of unexplained or recurrent spontaneous Oral contraceptives or hormone replacement Sepsis (< 1 month) Serious lung disease, including pneumonia (< 1 month) Abnormal pulmonary function Acute myocardial infarction Congestive heart failure (< 1 month) History of inflammatory bowel disease Medical patient at bed rest Age 61-74 Arthroscopic surgery Major open surgery (> 45 min) Laparoscopic surgery (> 45 min) Malignancy Confined to bed (> 72 hours) Immobilizing plaster cast Central venous access Age >= 75 History of VTE Family history of VTE Factor V Leiden Prothrombin [id number] Lupus anticoagulant Anticardiolipin antibodies Elevated serum homocysteine Heparin-induced thrombocytopenia Other congenital or acquired thrombophilia Stroke (< 1 month) Elective arthroplasty Hip, pelvis, or leg fracture Acute spinal cord injury (< 1 month) Prophylaxis Regimen Total Risk Factor Score Risk Level Prophylaxis Regimen 0-1 Low Early ambulation 2 Moderate Order ONE of the following: *Sequential Compression Device (SCD) *Heparin 5000 units SQ BID 3-4 Higher Order ONE of the following medications: *Heparin 5000 units SQ TID *Enoxaparin/Lovenox 40 mg SQ daily (WT < 150 kg, CrCl > 30 mL/min) *Enoxaparin/Lovenox 30 mg SQ daily (WT < 150 kg, CrCl > 10-29 mL/min) *Enoxaparin/Lovenox 30 mg SQ BID (WT < 150 kg, CrCl > 30 mL/min) AND/OR *Sequential Compression Device (SCD) 5 or more Highest Order ONE of the following medications: *Heparin 5000 units SQ TID (Preferred with Epidurals) *Enoxaparin/Lovenox 40 mg SQ daily (WT < 150 kg, CrCl > 30 mL/min) *Enoxaparin/Lovenox 30 mg SQ daily (WT < 150 kg, CrCl > 10-29 mL/min) *Enoxaparin/Lovenox 30 mg SQ BID (WT < 150 kg, CrCl > 30 mL/min) AND *Sequential Compression Device (SCD) Assessment and Plan Assessment and Plan * Chest pain: Patient has had serial cardiac enzymes and EKGs for ruling out purposes. He will be seen by Dr. Rust of cardiology in the chest pain center. Patient reports having a heart catheterization 9-10 months ago and states that he was told there were no blockages. Patient likely to be discharged home at this time with instruction to follow-up with PCP. * Hyperlipidemia: Patient states he should be on statin therapy but has not taken this for a while. He should follow-up with PCP and be started on statin therapy with close follow-up of LFTs as he had a history of elevated LFTs and hepatitis B. * Tobacco abuse: Patient counseled on the importance of smoking cessation. Patient is stable at this time. He is agreeable to this plan. Nixon Phelps May 07, 2018 08:13
[2018-05-07] MEDS ORDERED: SODIUM CHLORIDE 0.9% FLUSH 10 ML FLUSH IV FLUSH SCH (09:00)
--- NOTE | 2018-05-07 09:17 | PD.CARD.PN ---
Subjective Subjective Remarks 47-year-old gentleman presented to the emergency room with complaints of severe headache. He has had migraines in the distant past but none recently. 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 This headache is frontal has been associated with some photophobia or problems with his vision and some nausea. He also complains of slight dizziness. However his blood pressure was considerably up and is been off medication for about a year and he complained of some vague chest discomfort. He is already been fully evaluated by the chest pain center protocol and has ruled out for ACS. Some of his concerns seems to relate to the fact he has been told that he has some plaque in his carotid arteries and has a history of a questionable ascending aortic aneurysm which was evaluated 3 different times once he was told it was questionable to another physician subsequently said he did not have an aneurysm. He continues to smoke some has elevated cholesterol and high blood pressure so some risk factor. Objective Medications Current Medications Medications (Trade) Dose Ordered Sig/Nadine Route Start Time Stop Time Status Last Admin (NS Flush) 2 ml UNSCH PRN IVF 05/07/18 00:45 (NS Flush) 2 ml UNSCH PRN IV FLUSH 05/07/18 03:45 (NS Flush) 2 ml BID IV FLUSH 05/07/18 09:00 05/07/18 08:25 Vital Signs / I&O Vital Signs Date Time Temp Pulse Resp B/P (MAP) Pulse Ox O2 Delivery O2 Flow Rate FiO2 05/07/18 07:01 57 05/07/18 05:09 18 05/07/18 04:42 97.8 70 16 100/61 (74) 96 05/07/18 04:16 05/07/18 02:29 85 18 121/75 (90) 97 Room Air 05/07/18 02:29 18 05/07/18 01:31 82 18 153/78 (103) 97 Room Air 05/07/18 00:45 20 96 Room Air 05/07/18 00:34 93 18 145/83 (103) 97 Room Air 05/07/18 00:19 97.9 84 16 162/82 (108) 98 I/O 05/06/18 05/06/18 05/06/18 05/07/18 05/07/18 05/07/18 07:00 15:00 23:00 07:00 15:00 23:00 Intake Total 300 ml Balance 300 ml Intake Oral 100 ml IV Total 200 ml Physical Exam Well-nourished well-developed man resting comfortably when I entered the room Head normocephalic atraumatic no bruits and no tenderness over the temporal areas Eyes pupils are very sensitive to light but equal. Conjunctiva slightly injected. Extraocular movements are intact Mouth mucous membranes moist and well papillated no lesions Neck supple no JVD masses nodes or bruits. He indicates that the right carotid is somewhat tender to palpation (however this is the area he believes has some blockage and he obviously has anxiety in this regard) Chest diminished breath sounds but no rales wheezes or rhonchi Cardiovascular reveals a regular sinus rhythm with no gallop rub or murmur Psych patient appears to be anxious in regards to his reported carotid disease and the fact that his blood pressures been elevated and seems to be fearful of possibly having a stroke Laboratory Laboratory Tests Test 05/07/18 00:58 05/07/18 04:09 05/07/18 06:05 White Blood Count 10.6 TH/MM3 Red Blood Count 4.41 MIL/MM3 Hemoglobin 15.3 GM/DL Hematocrit 42.8 % Mean Corpuscular Volume 97.1 FL Mean Corpuscular Hemoglobin 34.7 PG Mean Corpuscular Hemoglobin Concent 35.7 % Red Cell Distribution Width 13.1 % Platelet Count 206 TH/MM3 Mean Platelet Volume 8.7 FL Neutrophils (%) (Auto) 68.5 % Lymphocytes (%) (Auto) 22.1 % Monocytes (%) (Auto) 8.3 % Eosinophils (%) (Auto) 0.6 % Basophils (%) (Auto) 0.5 % Neutrophils # (Auto) 7.3 TH/MM3 Lymphocytes # (Auto) 2.3 TH/MM3 Monocytes # (Auto) 0.9 TH/MM3 Eosinophils # (Auto) 0.1 TH/MM3 Basophils # (Auto) 0.1 TH/MM3 CBC Comment DIFF FINAL Differential Comment Prothrombin Time 10.0 SEC Prothromb Time International Ratio 1.0 RATIO Activated Partial Thromboplast Time 25.4 SEC Blood Urea Nitrogen 10 MG/DL Creatinine 0.82 MG/DL Random Glucose 85 MG/DL Total Protein 7.8 GM/DL Albumin 4.1 GM/DL Calcium Level 8.7 MG/DL Magnesium Level 1.9 MG/DL Alkaline Phosphatase 88 U/L Aspartate Amino Transf (AST/SGOT) 17 U/L Alanine Aminotransferase (ALT/SGPT) 16 U/L Total Bilirubin 0.2 MG/DL Sodium Level 140 MEQ/L Potassium Level 3.5 MEQ/L Chloride Level 105 MEQ/L Carbon Dioxide Level 26.8 MEQ/L Anion Gap 8 MEQ/L Estimat Glomerular Filtration Rate 100 ML/MIN Total Creatine Kinase 119 U/L 107 U/L 103 U/L Creatine Kinase MB 1.0 NG/ML 0.9 NG/ML Troponin I LESS THAN 0.02 NG/ML LESS THAN 0.02 NG/ML LESS THAN 0.02 NG/ML Lipase 113 U/L Imaging Last 24 hours Impressions Chest X-Ray 05/07/18 0038 Signed Impressions: CONCLUSION: Negative single view of the chest. Healed left clavicle fracture Head CT 05/07/18 0000 Signed Impressions: CONCLUSION: 1. Negative CT Head non contrast. Assessment and Plan Assessment and Plan Patient is ruled out for ACS but due to his complaints of headache and slight possible tenderness in the carotid area a sedimentation rate will be obtained prior to discharge to be sure he does not have temporal arteritis He is admonished to develop and follow with a primary care physician and outpatient basis Discussed Condition With Discussed with patient at some point Lawrence Rust MD May 07, 2018 09:17
[2018-05-07] MEDS ORDERED: ACETAMINOPHEN 325 MG TAB PO ONE (09:30)
--- NOTE | 2018-05-07 10:25 | HHI.DCPOC ---
Discharge Care Plan Diagnosis: (1) Chest pain (2) Cephalalgia (3) Tobacco abuse Goals to Promote Your Health * To prevent worsening of your condition and complications * To maintain your health at the optimal level Directions to Meet Your Goals Take your medications as prescribed Follow your dietary instruction Follow activity as directed Keep your appointments as scheduled Take your immunizations and boosters as scheduled If your symptoms worsen call your PCP, if no PCP go to Urgent Care Center or Emergency Room Smoking is Dangerous to Your Health. Avoid second hand smoke Call the 24-hour hour crisis hotline for domestic abuse at [facility] May 07, 2018 10:25
--- NOTE | 2018-05-07 13:10 | EKG ---
Date Performed: 05/07/2018 Time Performed: 03:10:33 PTAGE: 47 years EKG: Sinus rhythm MARKED LEFT AXIS DEVIATION INCOMPLETE RIGHT BUNDLE BRANCH BLOCK ABNORMAL ECG No change NO PREVIOUS TRACING DOCTOR: Lawrence Rust Interpretating Date/Time 05/07/2018 13:08:04
--- NOTE | 2018-05-07 13:11 | EKG ---
Date Performed: 05/06/2018 Time Performed: 23:33:10 PTAGE: 47 years EKG: Sinus rhythm MARKED LEFT AXIS DEVIATION INCOMPLETE RIGHT BUNDLE BRANCH BLOCK ABNORMAL ECG No change NO PREVIOUS TRACING DOCTOR: Lawrence Rust Interpretating Date/Time 05/07/2018 13:08:55
--- NOTE | 2018-05-09 18:37 | EKG ---
Date Performed: 05/07/2018 Time Performed: 07:18:56 PTAGE: 47 years EKG: Sinus rhythm MARKED LEFT AXIS DEVIATION INCOMPLETE RIGHT BUNDLE BRANCH BLOCK ABNORMAL ECG Since PREVIOUS TRACING , no significant change noted DOCTOR: Vani Anderson Interpretating Date/Time 05/09/2018 18:36:07
== END 2018-05-07 11:56 | disposition home or self-care (01) ==
LOC: NEPE 00:17 → NEDA 03:30 → NEPHCDU 04:30
PROVIDERS: ADMIT Internal Medicine Interventional Cardiology; ATTEND Internal Medicine Interventional Cardiology
DX: R07.89 Other chest pain (principal); I71.4 Abdominal aortic aneurysm, without rupture; R51 Headache; H53.149 Visual discomfort, unspecified; R11.0 Nausea; I45.10 Unspecified right bundle-branch block; I10 Essential (primary) hypertension; E78.5 Hyperlipidemia, unspecified; I25.2 Old myocardial infarction; K21.9 Gastro-esophageal reflux disease without esophagitis; F17.210 Nicotine dependence, cigarettes, uncomplicated; Z91.14 Patient's other noncompliance with medication regimen; Z82.49 Family history of ischemic heart disease and other diseases of the circulatory system
CPT/HCPCS: 70450; 71045; 80053; 82550; 82552; 83690; 83735; 84484; 85025; 85610; 85652; 85730; 93005; 96374; 96376; 99285; G0378; J1885